=== PATIENT | female | born 1960 | race Two or more races ===

== ENCOUNTER 2022-07-11 11:23 | Inpatient (IN) | payer OTHER ==
[~2022-07-11] VITALS: Ht 165.1 cm; Wt 88.0 kg
[2022-07-11] MEDS ORDERED: TENORMIN50 M1 PO (13:33)
[2022-07-11] MEDS ORDERED: LOSARTAN-HCTZ1 EAC1 PO (13:33)
[2022-07-11] MEDS ORDERED: ZYRTEC10 M3 PO (13:34)
[2022-07-11] MEDS ORDERED: DOXAZOSIN MESYLA2 MG PO (13:34)
[2022-07-13] MEDS ORDERED: VITAMIN D3125 MC1 (09:22)
== END 2022-07-14 11:00 | disposition home or self-care (01) | DRG 741 ==
LOC: OB/GYN 07-13 05:31 → O/R 07-13 05:31 → OB/GYN 07-13 07:00
PROVIDERS: ADMIT Obstetrics & Gynecology Gynecologic Oncology; ATTEND Obstetrics & Gynecology Gynecologic Oncology
PROC: 0UT94ZZ Resection of Uterus, Percutaneous Endoscopic Approach (ICD-10-PCS; 2022-07-13)
PROC: 0UT74ZZ Resection of Bilateral Fallopian Tubes, Percutaneous Endoscopic Approach (ICD-10-PCS; 2022-07-13)
PROC: 07BC4ZZ Excision of Pelvis Lymphatic, Percutaneous Endoscopic Approach (ICD-10-PCS; 2022-07-13)
PROC: 07BD4ZZ Excision of Aortic Lymphatic, Percutaneous Endoscopic Approach (ICD-10-PCS; 2022-07-13)
PROC: 0UT24ZZ Resection of Bilateral Ovaries, Percutaneous Endoscopic Approach (ICD-10-PCS; principal; 2022-07-13 07:00)
DX: C54.1 Malignant neoplasm of endometrium (principal); Z20.822 Contact with and (suspected) exposure to COVID-19